=== PATIENT | male | born 1955 | race Caucasian/White ===

== ENCOUNTER 2024-08-07 05:57 | Emergency (ER) | payer MEDICARE ==
[2024-08-07 06:09] VITALS: TEMP 96
--- NOTE | 2024-08-07 06:27 | ERPHSYRPT ---
- History of Present Illness Source: patient Exam Limitations: no limitations Patient Subjective Stated Complaint: rt side pain arianna under ribs, sob, cough Triage Nursing Assessment: Pt ambulated into ER without diff, spouse at bedside, pt alert and oriented x4. Pt c/o rt side pain at the rib area which began about 2 days ago but has worsened since yesterday. O2 sats 95% on rm air upon arrival to ER. Pt c/o it being difficult to take a deep breath, sob and being unable to lay down and a cough. Pt states, "that I only get relief when I stand up". Lungs clear anteriorly, pt was unable to lean forward for me to listen posteriorly. Heart tones reg. Abd obese with hypoactive bs x4 quad, nontender on palpation. Pt has trace non-pitting edema to BLE which pt states is normal for him. Timing/Duration: yesterday Severity: severe Modifying Factors: Improves With: nothing. Worsens With: movement Associated Symptoms: nausea, abdominal pain, diaphoresis, No vomiting, No chest pain, No fever Hx Tetanus, Diphtheria Vaccination/Date Given: No Hx Influenza Vaccination/Date Given: No Hx Pneumococcal Vaccination/Date Given: No <TAWNYA SOFIA - Last Filed: 08/07/24 06:42> <TONEY PAREDES - Last Filed: 08/07/24 09:07> - History of Present Illness Time Seen by Provider: 08/07/24 06:27 Physician History: The patient presents with sharp, intermittent pain on the side of their back, which has been ongoing for a couple of months but significantly worsened the previous day. The pain is severe enough to affect their ability to lie down and is associated with increased difficulty in urination. The patient also reports feeling feverish and experiencing excessive sweating. They deny any recent injuries or blood in their urine. The patient has a history of similar, albeit less severe, episodes in the past, which they associated with their kidneys. (TAWNYA SOFIA) Allergies/Adverse Reactions: Sulfa (Sulfonamide Antibiotics) Adverse Reaction (Intermediate, Verified 08/07/24 06:25) Rash Home Medications: Allopurinol 100 mg [Zyloprim 100 mg] 1 tab PO DAILY 08/07/24 [History] Losartan Potassium 100 mg PO DAILY 08/07/24 [History] Primidone 250 mg PO DAILY 08/07/24 [History] Propranolol HCl 40 mg PO DAILY 08/07/24 [History] Simvastatin 10 mg [Zocor 10MG] 1 tab PO DAILY 08/07/24 [History] Travel Risk - International Travel Have you traveled outside of the country in past 3 weeks: No - Emerging Infectious Disease Are you exhibiting symptoms associated with any current EIDs: Yes Symptoms: Cough: New Onset, Shortness of Breath <TAWNYA SOFIA - Last Filed: 08/07/24 06:42> - Review of Systems All Other Systems: Reviewed and Negative <TAWNYA SOFIA - Last Filed: 08/07/24 06:42> - Past Medical History Pertinent Past Medical History: Yes Neurological History: No Pertinent History ENT History: No Pertinent History Cardiac History: High Cholesterol, Hypertension Respiratory History: No Pertinent History Musculoskeletal History: Fractures, Other GI Medical History: Hernia History: Other Male Reproductive Disorders: No Pertinent History Other Medical History: kidney stone. tremors. gout. bone chip left ankle, fx bilat elbows - Past Surgical History Past Surgical History: No - Social History Smoking Status: Former smoker Exposure to second hand smoke: No Drug Use: none - Social Determinants of Health Will the patient participate in the screening: Yes Do you worry about a steady place to live?: No Do you have any problems with any of the following?: No known problems In the past 12 months,have you had to go without utilities?: No Transportation Issues: No Has anyone in your support network made you feel unsafe?: No Have you or anyone in your house had to go without enough: No <TAWNYA SOFIA - Last Filed: 08/07/24 06:42> - Physical Exam General Appearance: no apparent distress, obese Respiratory Exam: normal breath sounds, airway intact, No respiratory distress Cardiovascular Exam: regular rate/rhythm, No edema Gastrointestinal/Abdomen Exam: soft, tenderness (right flank), No guarding, No rebound Back Exam: CVA tenderness (right), point tenderness (under right rib) Neurologic Exam: alert, oriented x 3, cooperative Skin Exam: normal color, warm, diaphoresis SpO2 Interpretation: normal SpO2: 95 O2 Delivery: Room Air <TAWNYA SOFIA - Last Filed: 08/07/24 06:42> - Nursing Vital Signs Nursing Vital Signs: Initial Vital Signs Temperature 96.0 F 08/07/24 06:06 Pulse Rate 94 H 08/07/24 06:06 Respiratory Rate 30 H 08/07/24 06:06 Blood Pressure 157/81 08/07/24 06:06 O2 Sat by Pulse Oximetry 95 08/07/24 06:06 Pain Scale Pain Intensity [Right] 7 Pain Intensity 7 Ordered Tests: Active Orders 24 hr Category Date Time Status ABDOMEN AND PELVIS W/0 CONTRAS [CT] Stat Exams 08/07/24 06:34 Completed CHEST WITHOUT CONTRAST [CT] Stat Exams 08/07/24 06:36 Completed CBC W DIFF Stat Lab 08/07/24 06:52 Completed CMP Stat Lab 08/07/24 06:52 Completed LIPASE Stat Lab 08/07/24 06:52 Completed Lactic Acid Stat Lab 08/07/24 06:32 Completed Manual Differential NC Stat Lab 08/07/24 06:52 Completed TROPONIN Q4H Lab 08/07/24 06:52 Completed TROPONIN Q4H Lab 08/07/24 10:45 Ordered TROPONIN Q4H Lab 08/07/24 14:45 Ordered UA W/RFX UR CULTURE Stat Lab 08/07/24 06:42 Completed Medication Summary Discontinued Medications Generic Name Dose Route Start Last Admin Trade Name Freq PRN Reason Stop Dose Admin Ketorolac Tromethamine 10 mg 08/07/24 06:37 08/07/24 07:20 Ketorolac Tromethamine 10 Mg Tablet PO 08/07/24 06:38 10 mg ONCE ONE Administration Lab/Rad Data: Laboratory Result Diagrams 08/07/24 06:52 08/07/24 06:52 Laboratory Results 08/07/24 08/07/24 08/07/24 Range/Units 06:52 06:52 06:52 WBC 8.9 (4.23-9.07) x10^3/uL RBC 4.41 L (4.63-6.08) x10^6/uL Hgb 13.4 L (13.7-17.5) g/dL Hct 39.2 L (40.1-51.0) % MCV 88.9 (79.0-92.2) fL MCH 30.4 (25.7-32.2) pg MCHC 34.2 (32.3-36.5) g/dL RDW 14.2 (11.6-14.4) % Plt Count 174 (163-337) x10^3/uL MPV 10.5 (9.4-12.4) fL Segmented Neutrophils 90 H (34.0-67.9) % Lymphocytes (Manual) 4 L (21.8-53.1) % Monocytes (Manual) 6 (5.3-12.2) % Platelet Estimate NORMAL (NORMAL) RBC Morphology NORMAL Sodium 136 (135-145) mmol/L Potassium 3.6 (3.5-5.1) mmol/L Chloride 102 (98-107) mmol/L Carbon Dioxide 24 (22-30) mmol/L Anion Gap 13.8 (5-15) MEQ/L BUN 18 (9-20) mg/dL Creatinine 1.25 (0.66-1.25) mg/dL Estimated GFR 63.1 ML/MIN Glucose 137 H (74-106) mg/dL Lactic Acid (0.4-2.0) Calcium 8.9 (8.4-10.2) mg/dL Total Bilirubin 1.40 H (0.2-1.3) mg/dL AST 19 (17-59) U/L ALT 14 (0-50) U/L Alkaline Phosphatase 69 (38-126) U/L Troponin I < 0.012 (0.000-0.033) ng/mL Serum Total Protein 6.7 (6.3-8.2) g/dL Albumin 3.9 (3.5-5.0) g/dL Lipase 51 (23-300) U/L Urine Color (Yellow) Urine Appearance (Clear) Urine pH (4.6-8.0) Ur Specific Gregory (1.005-1.030) Urine Protein (Negative) Urine Glucose (UA) (Negative) mg/dL Urine Ketones (Negative) Urine Blood (Negative) Urine Nitrite (Negative) Urine Bilirubin (Negative) Urine Urobilinogen (0.2) mg/dL Ur Leukocyte Esterase (Negative) U Hyaline Cast (Auto) (0-2) /LPF Urine Microscopic RBC (0-5) /HPF Urine Microscopic WBC (0-5) /HPF Ur Epithelial Cells (None Seen) /HPF Urine Bacteria (None Seen) /HPF Urine Culture Reflexed (NO) 08/07/24 08/07/24 Range/Units 06:42 06:32 WBC (4.23-9.07) x10^3/uL RBC (4.63-6.08) x10^6/uL Hgb (13.7-17.5) g/dL Hct (40.1-51.0) % MCV (79.0-92.2) fL MCH (25.7-32.2) pg MCHC (32.3-36.5) g/dL RDW (11.6-14.4) % Plt Count (163-337) x10^3/uL MPV (9.4-12.4) fL Segmented Neutrophils (34.0-67.9) % Lymphocytes (Manual) (21.8-53.1) % Monocytes (Manual) (5.3-12.2) % Platelet Estimate (NORMAL) RBC Morphology Sodium (135-145) mmol/L Potassium (3.5-5.1) mmol/L Chloride (98-107) mmol/L Carbon Dioxide (22-30) mmol/L Anion Gap (5-15) MEQ/L BUN (9-20) mg/dL Creatinine (0.66-1.25) mg/dL Estimated GFR ML/MIN Glucose (74-106) mg/dL Lactic Acid 0.7 (0.4-2.0) Calcium (8.4-10.2) mg/dL Total Bilirubin (0.2-1.3) mg/dL AST (17-59) U/L ALT (0-50) U/L Alkaline Phosphatase (38-126) U/L Troponin I (0.000-0.033) ng/mL Serum Total Protein (6.3-8.2) g/dL Albumin (3.5-5.0) g/dL Lipase (23-300) U/L Urine Color Yellow (Yellow) Urine Appearance Clear (Clear) Urine pH 5.5 (4.6-8.0) Ur Specific Gregory 1.025 (1.005-1.030) Urine Protein 30 (Negative) Urine Glucose (UA) Negative (Negative) mg/dL Urine Ketones Trace A (Negative) Urine Blood Negative (Negative) Urine Nitrite Negative (Negative) Urine Bilirubin Negative (Negative) Urine Urobilinogen 1.0 A (0.2) mg/dL Ur Leukocyte Esterase Negative (Negative) U Hyaline Cast (Auto) 3-5 A (0-2) /LPF Urine Microscopic RBC 0-2 (0-5) /HPF Urine Microscopic WBC 0-2 (0-5) /HPF Ur Epithelial Cells None Seen (None Seen) /HPF Urine Bacteria None Seen (None Seen) /HPF Urine Culture Reflexed NO (NO) <TAWNYA SOFIA - Last Filed: 08/07/24 06:42> - Progress Counseled pt/family regarding: lab results, diagnosis, need for follow-up, rad results <TONEY PAREDES - Last Filed: 08/07/24 09:07> - Progress Progress Note: Flank Pain Severe, sharp pain on the side of the back, started yesterday but has been intermittent for a few months. No known injury. Increased difficulty urinating and possible fever. Physical exam reveals bilateral back muscle spasm. Differe ntial includes renal colic, musculoskeletal pain, and rib pathology. -Order CT scan to evaluate for kidney stones. -Include chest in CT scan to evaluate ribs for possible injury. -CBC, CMP, Lipase, Troponin, UA ordered -Ketorolac 10mg PO given. Care transitioned to Dr. Paredes at 0700 with labs/imaging pending. (TAWNYA SOFIA) 08/07/24 09:02 I interpreted the patient's laboratory data results. Based on the laboratory data results, there are no acute, emergent medical issues. The CT scan of the chest without contrast was interpreted by the radiologist. I reviewed the impression. The impressions include soft tissue density nodule right lung base. Follow-up with CT scan of chest with contrast is recommended. Left base subpleural calcified nodule. Multiple calcified nodules at left hilar level and subcarina. Bibasilar right greater than left, groundglass opacities. Right thyroid gland is enlarged with heterogeneous density. Correlate with outpatient ultrasound. No rib fractures. These findings were discussed with the patient. The CT scan of the abdomen pelvis without contrast was interpreted by the radiologist and I reviewed the impression. The impression states multiple gallstones. Tiny splenic calcifications. Bilateral perirenal fat stranding's without signs of acute urinary obstruction. Mild prostatomegaly. Small umbilical hernia with peritoneal fat content. These findings were discussed with the patient (TONEY PAREDES) Medical Desision Making - Diagnostic Testing Diagnostic test were ordered, analyzed, and reviewed by me: Yes Radiological Interpretation: Reviewed by me, Teleradiologist Report <TONEY PAREDES - Last Filed: 08/07/24 09:07> <TAWNYA SOFIA - Last Filed: 08/07/24 06:42> - Departure Departure Disposition: Home Critical Care Time: No <TONEY PAREDES - Last Filed: 08/07/24 09:07> - Departure Clinical Impression: Right-sided chest wall pain, Right flank pain, Lung nodule, multiple, Umbilical hernia, Enlarged thyroid gland Condition: Stable Referrals: BECKY SANCHEZ MD [Primary Care Provider] - Follow up/PCP as directed Additional Instructions: Drink plenty fluids. Take your medications as prescribed. Call your primary care provider on 08/09/2024, to make arrangements for follow-up appointment and to be seen in the next 3 to 5 days. Discuss the lung base nodule and hilar level nodule findings and follow their recommendations. Discussed the enlarged right thyroid gland findings and follow their recommendations.
[2024-08-07 07:10] LABS: Hematocrit 39.2 % (40.1-51.0); Hemoglobin 13.4 g/dL (13.7-17.5); Mean Cell Volume 88.9 fL (79.0-92.2); Mean Corpuscular Hemoglobin 30.4 pg (25.7-32.2); Mean Corpuscular Hgb Concent. 34.2 g/dL (32.3-36.5); Mean Platelet Volume 10.5 fL (9.4-12.4); Platelet Count 174 x10^3/uL (163-337); Red Blood Count 4.41 x10^6/uL (4.63-6.08); Red Cell Distribution Width 14.2 % (11.6-14.4); White Blood Count 8.9 x10^3/uL (4.23-9.07)
[2024-08-07] MEDS: TORAdol 10 MG TABLET PO ONE (07:20)
[2024-08-07 07:21] LABS: Appearance Clear (Clear); Bacteria None Seen /HPF (None Seen); Bilirubin Negative (Negative); Blood Negative (Negative); Epithelial Cells None Seen /HPF (None Seen); Glucose, Urine Negative (Negative); Ketones Trace (Negative); Leukocyte Esterase Negative (Negative); Nitrite Negative (Negative); Ph 5.5 (4.6-8.0); Protein,Urine Dip 30 (Negative); RBC 0-2 /HPF (0-5); Specific Gravity 1.025 (1.005-1.030); WBC 0-2 /HPF (0-5)
[2024-08-07 07:24] LABS: ALBUMIN 3.9 g/dL (3.5-5.0); ANION GAP 13.8 MEQ/L (5-15); BILIRUBIN,TOTAL 1.4 mg/dL (0.2-1.3); Calcium 8.9 mg/dL (8.4-10.2); Creatinine 1 1.25 mg/dL (0.66-1.25); EST GLOMERULAR FILTRATION RATE 63.1 ML/MIN; Potassium 3.6 mmol/L (3.5-5.1); Total Protein 6.7 g/dL (6.3-8.2)
[2024-08-07 07:42] LABS: Lymphocytes 4 % (21.8-53.1); Monocyte 6 % (5.3-12.2); Neutrophils 90 % (34.0-67.9); Total Cells Counted 100
[2024-08-07 07:44] LABS: Platelet Estimate NORMAL (NORMAL)
--- NOTE | 2024-08-07 08:55 | XRAY ---
CLINICAL HISTORY: ribs COMPARISON: None. TECHNIQUE: Contiguous axial CT images of the chest were acquired without administration of intravenous contrast. Coronal and sagittal reconstructions were obtained. One of the following dose reduction techniques were utilized for this exam: Automated exposure control, adjustment of the mA and/or kV according to patient size, use of iterative reconstruction. FINDINGS: Lungs: About [id number] diffusely calcified nodule is seen in the subpleural location with an adjacent 5mm calcified nodule medially in the left base. About 11x8mm soft tissue density nodule is also seen in the base, correlation with enhanced CT is advised. Bibasal reticulation is seen bilaterally, more at the right side with gound glass opacities. Mild atelectatic changes are seen in both lower lobes. Mild pleural thickening is seen in the posterior aspects of the lower zones, likely age-related. A small subpleural air-bulla is seen at the right lower lung zone anteriorly & another tiny bulla is also seen in the right upper lobe. Mediastinum: The mediastinum is normal in size and contour. Multiple calcified nodules are seen, at the left hilar level & at the sub sav[place] in addition to a few reactive-looking non-calcified nodules in the rest of the mediastinum. The heart size is within normal limits. The right thyroid is enlarged with heterogenous density, to correlate with US. Hilar Structures: The hilar structures appear normal without enlargement or abnormality. Trachea and Main Bronchi: The trachea and main bronchi are patent without evidence of obstruction or abnormality. Chest Wall: The chest wall is unremarkable with no evidence of soft tissue or bony abnormalities. Bones: No evidence of fracture or lytic/sclerotic lesions in the ribs. Hypertrophic changes are seen within the spine. A bony island is seen in the right humeral head. IMPRESSION: 1. About 11x8mm soft tissue density nodule is also seen in the right lung base, Lung-RADS 3 = Probably benign. Recommendation: 6-month low-dose chest CT screening 2. About [id number] diffusely calcified nodule is seen in the subpleural location with an adjacent 5mm calcified nodule medially in the left base. 3. Multiple calcified nodules are seen, at the left hilar level & at the sub savannah. correlation with the patient's history is advised. 4. Bibasal reticulation is seen bilaterally, more at the right side with ground glass opacities. 5. The right thyroid is enlarged with heterogenous density, to correlate with US. 6. No ribs fracture was identified. Electronically Signed by: Ingrid Hall MD. (08/07/2024 08:51:08 EDT)
--- NOTE | 2024-08-07 08:57 | XRAY ---
CLINICAL HISTORY: abd pain COMPARISON: No prior studies are available for comparison. TECHNIQUE: Non-contrast CT of the abdomen and pelvis was performed, with the following protocol: axial images, and reconstructed coronal and sagittal images. One of the following dose reduction techniques was utilized for this exam: Automated exposure control, adjustment of the mA and/or kV according to patient size, and use of iterative reconstruction. FINDINGS: Abdomen: Liver: Normal in size, shape, and density. No focal lesions, cysts, or masses were identified. Gallbladder and Biliary System: The gallbladder is well-distended with multiple variant-sized gallstones. No wall thickening or pericholecystic fluid were identified. Pancreas: Pancreatic head, body, and tail are visualized and appear normal in size and density. No pancreatic masses or calcifications were noted. Spleen: Normal in size, shape, and density. Numerous tiny calcifications are seen throughout the splenic parenchyma, which could be related to a previous granulomatous disease. Correlation with the patient history is advised. Kidneys and Adrenal Glands: Both kidneys are normal in size, shape, and position. Cortical thickness is within normal limits. No mustapha renal calculi or hydronephrosis. Mild bilateral mika renal fat stranding is noted. Adrenal glands are unremarkable. Abdominal Aorta and Vessels: The abdominal aorta reveals mild atherosclerotic changes without evidence of an aneurysm. Pelvis: Urinary Bladder: is under-distended. No stones were identified. Prostate: is slightly enlarged in size up to 41ml with clear contour. Seminal Vesicles: Normal appearance without abnormal enlargement or mass. Peritoneal and Retroperitoneal Structures: No free fluid or abnormal fluid collections were identified within the abdomen or pelvis. No lymphadenopathy was noted. Bowel: No signs of appendicitis. The visualized bowel loops are normal in caliber and appearance. No evidence of bowel obstruction or wall thickening. A small umbilical hernia with peritoneal fat content. Bones and Soft Tissues: Pelvic bones and soft tissues are unremarkable but hypertrophic changes in the spine. IMPRESSION: 1. Multiple gallstones are seen with no signs of acute cholecystitis. 2. Numerous tiny calcifications are seen throughout the splenic parenchyma, which could be related to a previous granulomatous disease. Correlation with the patient history is advised. 3. Mild bilateral mika renal fat stranding is noted with no signs of acute urinary obstruction. 4. Mild prostatomegaly is noted up to 41ml, for US correlation. 5. A small umbilical hernia with peritoneal fat content. Electronically Signed by: Ingrid Hall MD. (08/07/2024 08:52:30 EDT)
[2024-08-07 09:05] VITALS: BP 129/73; PULSE 68; RESP 18; O2SAT 95
== END 2024-08-07 09:21 | disposition home or self-care (01) ==
LOC: ED 05:57
DX: R07.89 Other chest pain (principal); R10.9 Unspecified abdominal pain; R91.8 Other nonspecific abnormal finding of lung field; K42.9 Umbilical hernia without obstruction or gangrene; E04.9 Nontoxic goiter, unspecified; M54.9 Dorsalgia, unspecified; R39.198 Other difficulties with micturition; E78.5 Hyperlipidemia, unspecified; I10 Essential (primary) hypertension; Z79.899 Other long term (current) drug therapy
CPT/HCPCS: 36415; 71250; 74176; 80053; 81001; 83605; 83690; 84484; 85025; 99283; A9270-GY

== ENCOUNTER 2024-08-18 21:50 | Emergency (ER) | payer MEDICARE ==
--- NOTE | 2024-08-18 22:02 | ERPHSYRPT ---
- History of Present Illness Time Seen by Provider: 08/18/24 22:01 Source: patient Exam Limitations: no limitations Physician History: Patient is a 68-year-old male presents to our ED with his for evaluation of progressive shortness of breath over the past couple weeks. at bedside. They deny any cardiopulmonary history. Patient was a former smoker. Patient is not retired. Patient reports chronic leg swelling. He has no pain at this time. Shortness of breath is worse with exertion. reports that patient unable to ambulate to his bathroom. Patient symptoms are progressive. Symptoms are moderate in intensity. Patient/ voiced no other complaints or concerns at this time. Patient observed to have a fever 102.2 Portions of this note were created with voice recognition technology. There may be grammatical, spelling, punctuation or sound alike errors Timing/Duration: week(s) Activities at Onset: activity Severity of Dyspnea-Max: moderate Severity of Dyspnea-Current: mild Possible Cause: no prior episodes Modifying Factors: Improves With: activity Associated Symptoms: denies symptoms Allergies/Adverse Reactions: Sulfa (Sulfonamide Antibiotics) Adverse Reaction (Intermediate, Verified 08/18/24 21:53) Rash Home Medications: Allopurinol 100 mg [Zyloprim 100 mg] 1 tab PO DAILY 08/07/24 [History] Losartan Potassium 100 mg PO DAILY 08/07/24 [History] Primidone 250 mg PO DAILY 08/07/24 [History] Propranolol HCl 40 mg PO DAILY 08/07/24 [History] Simvastatin 10 mg [Zocor 10MG] 1 tab PO DAILY 08/07/24 [History] Albuterol Sulfate Mdi [ALBUTEROL/Proair Hfa MDI] 2 puff IH Q4HPRN PRN [History] Hx Tetanus, Diphtheria Vaccination/Date Given: No Hx Influenza Vaccination/Date Given: No Hx Pneumococcal Vaccination/Date Given: No Travel Risk - Emerging Infectious Disease Are you exhibiting symptoms associated with any current EIDs: Yes Symptoms: Cough: New Onset, Shortness of Breath - Review of Systems Constitutional: No Symptoms, No Fever, No Chills Eyes: No Symptoms Ears, Nose, & Throat: No Symptoms Respiratory: No Symptoms, No Cough, No Dyspnea Cardiac: No Symptoms, No Chest Pain, No Edema, No Syncope Abdominal/Gastrointestinal: No Symptoms, No Abdominal Pain, No Nausea, No Vomiting, No Diarrhea Genitourinary Symptoms: No Symptoms, No Dysuria Musculoskeletal: No Symptoms, No Back Pain, No Neck Pain Skin: No Symptoms, No Rash Neurological: No Symptoms, No Dizziness, No Focal Weakness, No Sensory Changes Psychological: No Symptoms Endocrine: No Symptoms Hematologic/Lymphatic: No Symptoms Immunological/Allergic: No Symptoms All Other Systems: Reviewed and Negative - Past Medical History Pertinent Past Medical History: Yes Neurological History: No Pertinent History ENT History: No Pertinent History Cardiac History: High Cholesterol, Hypertension Respiratory History: No Pertinent History Musculoskeletal History: Fractures, Other GI Medical History: Hernia History: Other Male Reproductive Disorders: No Pertinent History Other Medical History: kidney stone. tremors. gout. bone chip left ankle, fx bilat elbows - Past Surgical History Past Surgical History: No - Social History Smoking Status: Former smoker Exposure to second hand smoke: No Drug Use: none - Social Determinants of Health Will the patient participate in the screening: Yes Do you worry about a steady place to live?: No In the past 12 months,have you had to go without utilities?: No Transportation Issues: No Has anyone in your support network made you feel unsafe?: No Have you or anyone in your house had to go without enough: No - Nursing Vital Signs Nursing Vital Signs: Initial Vital Signs Temperature 102.2 F 08/18/24 21:57 Pulse Rate 100 H 08/18/24 21:57 Respiratory Rate 32 H 08/18/24 21:57 Blood Pressure 175/91 08/18/24 21:57 O2 Sat by Pulse Oximetry 94 L 08/18/24 21:57 Pain Scale Pain Intensity 0 - Physical Exam General Appearance: no apparent distress, alert Eye Exam: PERRL/EOMI, eyes nml inspection Ears, Nose, Throat Exam: normal ENT inspection, normal pharynx Neck Exam: normal inspection, supple, full range of motion Respiratory Exam: diminished breath sounds Cardiovascular/Chest Exam: normal heart sounds, regular rate/rhythm Abdominal/Gastrointestinal Exam: soft, No tenderness, No distention, No mass Extremity Exam: non-tender, normal range of motion, normal inspection, no calf tenderness, no pedal edema Neurologic Exam: alert, oriented x 3, cooperative, 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 Right heart strain lung cyst right pleural effusion lung granulomas right middle lobe 1 cm lung nodule cholelithiasis and bulky right thyroid lobe) Ordered Tests: Active Orders 24 hr Category Date Time Status [employer] STAT Care 08/18/24 21:57 Active EKG-ER Only STAT Care 08/18/24 21:57 Active IV Insertion STAT Care 08/18/24 21:57 Active Pulse Oximetry (ED) STAT Care 08/18/24 21:57 Active CHEST WITH CONTRAST [CT] Stat Exams 08/18/24 23:09 Completed BLOOD CULTURE Stat Lab 08/18/24 22:15 Received CBC Q48H Lab 08/20/24 06:00 Ordered CBC Q48H Lab 08/22/24 06:00 Ordered CBC Q48H Lab 08/24/24 06:00 Ordered CBC Q48H Lab 08/26/24 06:00 Ordered CBC Q48H Lab 08/28/24 06:00 Ordered CBC Q48H Lab 08/30/24 06:00 Ordered CBC Q48H Lab 09/01/24 06:00 Ordered CBC W DIFF Stat Lab 08/18/24 22:10 Completed CMP Stat Lab 08/18/24 22:10 Completed D-DIMER QUANTITATIVE Stat Lab 08/18/24 22:10 Completed NT PRO BNPII Stat Lab 08/18/24 22:15 Completed PROTIME WITH INR Stat Lab 08/19/24 00:00 Completed PTT Q4H Lab 08/19/24 06:30 Completed PTT Q4H Lab 08/19/24 10:30 Ordered PTT Q4H Lab 08/19/24 14:30 Ordered PTT Q4H Lab 08/19/24 18:30 Ordered PTT Q4H Lab 08/19/24 22:30 Ordered PTT Q4H Lab 08/20/24 02:30 Ordered PTT Q4H Lab 08/20/24 03:15 Ordered PTT Q4H Lab 08/20/24 03:45 Ordered PTT Q4H Lab 08/20/24 06:30 Ordered PTT Q4H Lab 08/20/24 07:15 Ordered PTT Q4H Lab 08/20/24 07:45 Ordered PTT Q4H Lab 08/20/24 10:30 Ordered PTT Q4H Lab 08/20/24 11:15 Ordered PTT Q4H Lab 08/20/24 11:45 Ordered PTT Q4H Lab 08/20/24 14:30 Ordered PTT Q4H Lab 08/20/24 15:15 Ordered PTT Q4H Lab 08/20/24 15:45 Ordered PTT Q4H Lab 08/20/24 18:30 Ordered PTT Q4H Lab 08/20/24 19:15 Ordered PTT Q4H Lab 08/20/24 19:45 Ordered PTT Q4H Lab 08/20/24 22:30 Ordered PTT Q4H Lab 08/20/24 23:15 Ordered PTT Q4H Lab 08/20/24 23:45 Ordered PTT Stat Lab 08/19/24 00:00 Completed TROPONIN AM.LAB Lab 08/19/24 04:17 Completed TROPONIN Stat Lab 08/19/24 00:00 Completed UA W/RFX UR CULTURE Stat Lab 08/18/24 22:49 Completed Respiratory Therapy Assessment DAILY RT 08/18/24 22:21 Active Medication Summary Generic Name Dose Route Start Last Admin Trade Name Freq PRN Reason Stop Dose Admin Heparin Sodium/Dextrose 25,000 units in 250 mls @ 0 mls/hr 08/19/24 03:30 Heparin 25,000 Units/D5w: Use Order Set Anna IV 09/18/24 03:29 PROSPER Protocol 12 UNITS/KG/HR Heparin Sodium/Dextrose 25,000 units in 250 mls @ 16.632 mls/hr 08/19/24 04:00 08/19/24 03:30 Heparin 25,000 Units/D5w: Use Order Set Anna IV 09/18/24 03:59 10 units/kg/hr .Q15H2M PROSPER 13.86 mls/hr Administration Protocol 12 UNITS/KG/HR Discontinued Medications Generic Name Dose Route Start Last Admin Trade Name Freq PRN Reason Stop Dose Admin Acetaminophen 975 mg 08/18/24 22:13 08/18/24 22:22 Acetaminophen 325 Mg Tablet PO 08/18/24 22:14 975 mg STAT ONE Administration Acetaminophen Confirm 08/18/24 22:16 Acetaminophen 325 Mg Tablet Administered 08/18/24 22:17 Dose 975 mg .ROUTE .STK-MED ONE Albuterol/Ipratropium 3 ml 08/18/24 21:57 08/18/24 22:21 Ipratropium/Albuterol Sulfate 3 Ml Ampul.Neb IH 08/18/24 21:58 3 ml STAT ONE Administration Albuterol/Ipratropium Confirm 08/18/24 22:06 Ipratropium/Albuterol Sulfate 3 Ml Ampul.Neb Administered 08/18/24 22:07 Dose 3 ml IH .STK-MED ONE Methylprednisolone Sodium 0 mg 08/18/24 21:57 08/18/24 22:23 Succinate 125 mg/ Sterile IV 08/18/24 21:58 125 mg Water 2 ml STAT ONE Administration Heparin Sodium (Beef Lung) 5,000 unit 08/19/24 02:20 08/19/24 02:42 Heparin 5000 Units/0.5 Ml 5,000 Unit/0.5 Ml Syr IV 08/19/24 02:21 5,000 unit STAT STA Administration Heparin Sodium (Beef Lung) Confirm 08/19/24 02:39 Heparin 5000 Units/0.5 Ml 5,000 Unit/0.5 Ml Syr Administered 08/19/24 02:40 Dose 5,000 unit .ROUTE .STK-MED ONE Methylprednisolone Sodium Succinate Confirm 08/18/24 22:16 Methylprednis Sod Succ 125 Mg/2 Ml Vial Administered 08/18/24 22:17 Dose 125 mg .ROUTE .STK-MED ONE Sterile Water Confirm 08/18/24 22:16 Water For Injection,Sterile 10 Ml Vial Administered 08/18/24 22:17 Dose 10 ml IJ .STK-MED ONE Lab/Rad Data: Laboratory Result Diagrams 08/18/24 22:10 08/18/24 22:10 Laboratory Results 08/19/24 08/19/24 08/19/24 Range/Units 06:30 04:17 00:00 WBC (4.23-9.07) x10^3/uL RBC (4.63-6.08) x10^6/uL Hgb (13.7-17.5) g/dL Hct (40.1-51.0) % MCV (79.0-92.2) fL MCH (25.7-32.2) pg MCHC (32.3-36.5) g/dL RDW (11.6-14.4) % Plt Count (163-337) x10^3/uL MPV (9.4-12.4) fL Gran % (34.0-67.9) % Immature Gran % (Auto) (0.001-0.429) % Nucleat RBC Rel Count (0.00-0.2) % Eos # (Auto) (0.04-0.54) x10^3/uL Immature Gran # (Auto) (0.001-0.031) x10^3u/L Absolute Lymphs (auto) (1.32-3.57) x10^3/uL Absolute Monos (auto) (0.30-0.82) x10^3/uL Absolute Nucleated RBC (0.00-0.012) x10^3u/L Lymphocytes % (21.8-53.1) % Monocytes % (5.3-12.2) % Eosinophils % (0.8-7.0) % Basophils % (0.2-1.2) % Absolute Granulocytes (1.78-5.38) x10^3/uL Basophils # (0.01-0.08) x10^3/uL PT (9.4-12.5) SECONDS INR (0.8-3.0) APTT 43.4 H (25.1-36.5) SECONDS D-Dimer (0.0-0.50) mg/L Sodium (135-145) mmol/L Potassium (3.5-5.1) mmol/L Chloride (98-107) mmol/L Carbon Dioxide (22-30) mmol/L Anion Gap (5-15) MEQ/L BUN (9-20) mg/dL Creatinine (0.66-1.25) mg/dL Estimated GFR ML/MIN Glucose (74-106) mg/dL Calcium (8.4-10.2) mg/dL Total Bilirubin (0.2-1.3) mg/dL AST (17-59) U/L ALT (0-50) U/L Alkaline Phosphatase (38-126) U/L Troponin I < 0.012 < 0.012 (0.000-0.033) ng/mL NT-Pro-B Natriuret Pep (<300) pg/mL Serum Total Protein (6.3-8.2) g/dL Albumin (3.5-5.0) g/dL Urine Color (Yellow) Urine Appearance (Clear) Urine pH (4.6-8.0) Ur Specific [place] (1.005-1.030) Urine Protein (Negative) Urine Glucose (UA) (Negative) mg/dL Urine Ketones (Negative) Urine Blood (Negative) Urine Nitrite (Negative) Urine Bilirubin (Negative) Urine Urobilinogen (0.2) mg/dL Ur Leukocyte Esterase (Negative) U Hyaline Cast (Auto) (0-2) /LPF Urine Microscopic RBC (0-5) /HPF Urine Microscopic WBC (0-5) /HPF Ur Epithelial Cells (None Seen) /HPF Urine Bacteria (None Seen) /HPF Urine Culture Reflexed (NO) Influenza Type A Ag (NEGATIVE) Influenza Type B Ag (NEGATIVE) RSV (PCR) (NEGATIVE) SARS-CoV-2 (PCR) (NEGATIVE) 08/19/24 08/18/24 08/18/24 Range/Units 00:00 22:49 22:16 WBC (4.23-9.07) x10^3/uL RBC (4.63-6.08) x10^6/uL Hgb (13.7-17.5) g/dL Hct (40.1-51.0) % MCV (79.0-92.2) fL MCH (25.7-32.2) pg MCHC (32.3-36.5) g/dL RDW (11.6-14.4) % Plt Count (163-337) x10^3/uL MPV (9.4-12.4) fL Gran % (34.0-67.9) % Immature Gran % (Auto) (0.001-0.429) % Nucleat RBC Rel Count (0.00-0.2) % Eos # (Auto) (0.04-0.54) x10^3/uL Immature Gran # (Auto) (0.001-0.031) x10^3u/L Absolute Lymphs (auto) (1.32-3.57) x10^3/uL Absolute Monos (auto) (0.30-0.82) x10^3/uL Absolute Nucleated RBC (0.00-0.012) x10^3u/L Lymphocytes % (21.8-53.1) % Monocytes % (5.3-12.2) % Eosinophils % (0.8-7.0) % Basophils % (0.2-1.2) % Absolute Granulocytes (1.78-5.38) x10^3/uL Basophils # (0.01-0.08) x10^3/uL PT 11.5 (9.4-12.5) SECONDS INR 1.06 (0.8-3.0) APTT 29.0 (25.1-36.5) SECONDS D-Dimer (0.0-0.50) mg/L Sodium (135-145) mmol/L Potassium (3.5-5.1) mmol/L Chloride (98-107) mmol/L Carbon Dioxide (22-30) mmol/L Anion Gap (5-15) MEQ/L BUN (9-20) mg/dL Creatinine (0.66-1.25) mg/dL Estimated GFR ML/MIN Glucose (74-106) mg/dL Calcium (8.4-10.2) mg/dL Total Bilirubin (0.2-1.3) mg/dL AST (17-59) U/L ALT (0-50) U/L Alkaline Phosphatase (38-126) U/L Troponin I (0.000-0.033) ng/mL NT-Pro-B Natriuret Pep (<300) pg/mL Serum Total Protein (6.3-8.2) g/dL Albumin (3.5-5.0) g/dL Urine Color Yellow (Yellow) Urine Appearance Clear (Clear) Urine pH 5.5 (4.6-8.0) Ur Specific [place] 1.025 (1.005-1.030) Urine Protein Trace A (Negative) Urine Glucose (UA) Negative (Negative) mg/dL Urine Ketones Trace A (Negative) Urine Blood Negative (Negative) Urine Nitrite Negative (Negative) Urine Bilirubin Negative (Negative) Urine Urobilinogen 1.0 A (0.2) mg/dL Ur Leukocyte Esterase Negative (Negative) U Hyaline Cast (Auto) NONE SEEN (0-2) /LPF Urine Microscopic RBC 0-2 (0-5) /HPF Urine Microscopic WBC 0-2 (0-5) /HPF Ur Epithelial Cells None Seen (None Seen) /HPF Urine Bacteria None Seen (None Seen) /HPF Urine Culture Reflexed NO (NO) Influenza Type A Ag NEGATIVE (NEGATIVE) Influenza Type B Ag NEGATIVE (NEGATIVE) RSV (PCR) NEGATIVE (NEGATIVE) SARS-CoV-2 (PCR) POSITIVE A (NEGATIVE) 08/18/24 08/18/24 08/18/24 Range/Units 22:15 22:10 22:10 WBC (4.23-9.07) x10^3/uL RBC (4.63-6.08) x10^6/uL Hgb (13.7-17.5) g/dL Hct (40.1-51.0) % MCV (79.0-92.2) fL MCH (25.7-32.2) pg MCHC (32.3-36.5) g/dL RDW (11.6-14.4) % Plt Count (163-337) x10^3/uL MPV (9.4-12.4) fL Gran % (34.0-67.9) % Immature Gran % (Auto) (0.001-0.429) % Nucleat RBC Rel Count (0.00-0.2) % Eos # (Auto) (0.04-0.54) x10^3/uL Immature Gran # (Auto) (0.001-0.031) x10^3u/L Absolute Lymphs (auto) (1.32-3.57) x10^3/uL Absolute Monos (auto) (0.30-0.82) x10^3/uL Absolute Nucleated RBC (0.00-0.012) x10^3u/L Lymphocytes % (21.8-53.1) % Monocytes % (5.3-12.2) % Eosinophils % (0.8-7.0) % Basophils % (0.2-1.2) % Absolute Granulocytes (1.78-5.38) x10^3/uL Basophils # (0.01-0.08) x10^3/uL PT (9.4-12.5) SECONDS INR (0.8-3.0) APTT (25.1-36.5) SECONDS D-Dimer 9.58 H* (0.0-0.50) mg/L Sodium 137 (135-145) mmol/L Potassium 4.0 (3.5-5.1) mmol/L Chloride 105 (98-107) mmol/L Carbon Dioxide 22 (22-30) mmol/L Anion Gap 14.2 (5-15) MEQ/L BUN 20 (9-20) mg/dL Creatinine 1.36 H (0.66-1.25) mg/dL Estimated GFR 57.0 ML/MIN Glucose 109 H (74-106) mg/dL Calcium 8.8 (8.4-10.2) mg/dL Total Bilirubin 0.50 (0.2-1.3) mg/dL AST 24 (17-59) U/L ALT 20 (0-50) U/L Alkaline Phosphatase 66 (38-126) U/L Troponin I (0.000-0.033) ng/mL NT-Pro-B Natriuret Pep 920 (<300) pg/mL Serum Total Protein 6.5 (6.3-8.2) g/dL Albumin 3.7 (3.5-5.0) g/dL Urine Color (Yellow) Urine Appearance (Clear) Urine pH (4.6-8.0) Ur Specific [place] (1.005-1.030) Urine Protein (Negative) Urine Glucose (UA) (Negative) mg/dL Urine Ketones (Negative) Urine Blood (Negative) Urine Nitrite (Negative) Urine Bilirubin (Negative) Urine Urobilinogen (0.2) mg/dL Ur Leukocyte Esterase (Negative) U Hyaline Cast (Auto) (0-2) /LPF Urine Microscopic RBC (0-5) /HPF Urine Microscopic WBC (0-5) /HPF Ur Epithelial Cells (None Seen) /HPF Urine Bacteria (None Seen) /HPF Urine Culture Reflexed (NO) Influenza Type A Ag (NEGATIVE) Influenza Type B Ag (NEGATIVE) RSV (PCR) (NEGATIVE) SARS-CoV-2 (PCR) (NEGATIVE) 08/18/24 Range/Units 22:10 WBC 5.5 (4.23-9.07) x10^3/uL RBC 4.22 L (4.63-6.08) x10^6/uL Hgb 12.6 L (13.7-17.5) g/dL Hct 37.6 L (40.1-51.0) % MCV 89.1 (79.0-92.2) fL MCH 29.9 (25.7-32.2) pg MCHC 33.5 (32.3-36.5) g/dL RDW 14.3 (11.6-14.4) % Plt Count 204 (163-337) x10^3/uL MPV 10.5 (9.4-12.4) fL Gran % 80.7 H (34.0-67.9) % Immature Gran % (Auto) 0.2 (0.001-0.429) % Nucleat RBC Rel Count 0.0 (0.00-0.2) % Eos # (Auto) 0.22 (0.04-0.54) x10^3/uL Immature Gran # (Auto) 0.01 (0.001-0.031) x10^3u/L Absolute Lymphs (auto) 0.37 L (1.32-3.57) x10^3/uL Absolute Monos (auto) 0.43 (0.30-0.82) x10^3/uL Absolute Nucleated RBC 0.00 (0.00-0.012) x10^3u/L Lymphocytes % 6.8 L (21.8-53.1) % Monocytes % 7.9 (5.3-12.2) % Eosinophils % 4.0 (0.8-7.0) % Basophils % 0.4 (0.2-1.2) % Absolute Granulocytes 4.41 (1.78-5.38) x10^3/uL Basophils # 0.02 (0.01-0.08) x10^3/uL PT (9.4-12.5) SECONDS INR (0.8-3.0) APTT (25.1-36.5) SECONDS D-Dimer (0.0-0.50) mg/L Sodium (135-145) mmol/L Potassium (3.5-5.1) mmol/L Chloride (98-107) mmol/L Carbon Dioxide (22-30) mmol/L Anion Gap (5-15) MEQ/L BUN (9-20) mg/dL Creatinine (0.66-1.25) mg/dL Estimated GFR ML/MIN Glucose (74-106) mg/dL Calcium (8.4-10.2) mg/dL Total Bilirubin (0.2-1.3) mg/dL AST (17-59) U/L ALT (0-50) U/L Alkaline Phosphatase (38-126) U/L Troponin I (0.000-0.033) ng/mL NT-Pro-B Natriuret Pep (<300) pg/mL Serum Total Protein (6.3-8.2) g/dL Albumin (3.5-5.0) g/dL Urine Color (Yellow) Urine Appearance (Clear) Urine pH (4.6-8.0) Ur Specific [place] (1.005-1.030) Urine Protein (Negative) Urine Glucose (UA) (Negative) mg/dL Urine Ketones (Negative) Urine Blood (Negative) Urine Nitrite (Negative) Urine Bilirubin (Negative) Urine Urobilinogen (0.2) mg/dL Ur Leukocyte Esterase (Negative) U Hyaline Cast (Auto) (0-2) /LPF Urine Microscopic RBC (0-5) /HPF Urine Microscopic WBC (0-5) /HPF Ur Epithelial Cells (None Seen) /HPF Urine Bacteria (None Seen) /HPF Urine Culture Reflexed (NO) Influenza Type A Ag (NEGATIVE) Influenza Type B Ag (NEGATIVE) RSV (PCR) (NEGATIVE) SARS-CoV-2 (PCR) (NEGATIVE) - Progress Progress: improved Air Movement: good Progress Note: 69-year-old male presents to our ED for evaluation of progressive shortness of breath over a week. CT scan reveals PE with right heart strain right pleural effusion and a bulky right thyroid lobe that will require follow-up. and patient were informed of the findings including the need for outpatient ultrasound to further evaluate the lobe of the right thyroid. 08/19/24 02:[address] James vascular surgeon at [facility] at 3:53 AM. He will except the consultation. We are currently awaiting call from hospitalist for formal acceptance. 08/19/24 03:[address] Crowder hospitalist at [facility] at 3:57 AM. He excepted admission to ICU. Bed assignment pending. I spoke to Dr. Bansal interventional radiologist at [facility] who reviewed the CAT scan. Spoke to Dr. Bansal at 4:06 AM. He feels that the clot burden is of small volume and would not require interventional radiology services. He feels the management would be medicinal. 08/19/24 04:[address] Mike Davdi hospitalist at [facility] who accepts transfer ER to ER at 4:36 AM. 08/19/24 04:24 Spoke to hospitalist at [facility] who accepts transfer at 4:29 AM. 08/19/24 04:29 Family has decided on transferring to [facility]. We have arranged ground transport. However ground transport will not be available till 10:30 AM. Family updated. Patient febrile upon arrival at 102.2. Tylenol administered. Fever defervesced. Patient currently on a heparin drip per protocol. PTT will be rechecked at 7:30 AM. It is currently the change of shift. Patient endorsed to incoming physician who will oversee the transfer process. Patient reassessed. He is resting comfortably. O2 sat is 96% on 2 L. Blood pressure 135/79. No indication for further workup at this time. Will continue management until reassessment of PTT at 7:30 AM. 69-year-old male presents to our ED for evaluation of shortness of breath. Physical exam revealed hypoxia diminished breath sounds. D-dimer elevated at 9.58. CTA chest reveals filling defect at the right main and bilateral lobar and segmental branches. Troponin negative x 2. Weight-based heparin drip initiated. Vital stable. Transport pending. Complexity of problem addressed is moderate acute complicated. Critical care time is greater than 194 minutes. Immediate management indicated to prevent further deterioration. Complexity data reviewed and analyzed is extensive. Test ordered chest reviewed results analyzed and correlated clinically with history and physical exam. Management discussed with specialist as indicated above. Risk of complication and or risk of morbidity/mortality of patient management is high. Vital stable. Time spent to transfer patient is approximately 30 minutes. Plan of care established for shared decision making. No social determinants of health present to impede follow-up. 08/19/24 06:52 08/19/24 06:55 Blood Culture(s) Obtained: Yes Antibiotics given: Yes Counseled pt/family regarding: lab results, diagnosis, rad results - Departure Departure Disposition: Observation Clinical Impression: SOB (shortness of breath), COVID-19, Fever, CRI (chronic renal insufficiency), Pulmonary embolus, Right heart strain, Lung granuloma, Lung nodule, Pleural effusion on right, Lung cyst, Bulky right thyroid lobe, Cholelithiasis Condition: Stable Critical Care Time: Yes Critical Care Time(excluding separately billable procedures): Critical > 194 mins Referrals: BECKY SANCHEZ MD [Primary Care Provider] - Follow up/PCP as directed
[2024-08-18] MEDS ORDERED: DUONEB 0.5-3 MG/3 ml Neb IH ONE (22:06)
[2024-08-18 22:11] VITALS: TEMP 102.2
[2024-08-18] MEDS ORDERED: TYLENOL 325 MG ONE (22:16)
[2024-08-18] MEDS ORDERED: Sterile H2O 10 ml IJ ONE (22:16)
[2024-08-18] MEDS ORDERED: solu-MEDROL ONE (22:16)
[2024-08-18] MEDS: DUONEB 0.5-3 MG/3 ml Neb IH ONE (22:21)
[2024-08-18] MEDS: TYLENOL 325 MG PO ONE (22:22)
[2024-08-18] MEDS: solu-MEDROL 125 MG, Sterile H2O 10 ml 2 ML IV ONE (22:23)
[2024-08-18 22:27] LABS: Absolute Neutrophil Ct (ANC) 4.41 x10^3/uL (1.78-5.38); BASOPHIL % 0.4 % (0.2-1.2); Basophil (Absolute #) 0.02 x10^3/uL (0.01-0.08); Eosinophil (Absolute #) 0.22 x10^3/uL (0.04-0.54); Hematocrit 37.6 % (40.1-51.0); Hemoglobin 12.6 g/dL (13.7-17.5); IMMATURE GRAN # 0.01 x10^3u/L (0.001-0.031); IMMATURE GRAN % 0.2 % (0.001-0.429); Lymphocyte (Absolute #) 0.37 x10^3/uL (1.32-3.57); Lymphocytes % 6.8 % (21.8-53.1); Mean Cell Volume 89.1 fL (79.0-92.2); Mean Corpuscular Hemoglobin 29.9 pg (25.7-32.2); Mean Corpuscular Hgb Concent. 33.5 g/dL (32.3-36.5); Mean Platelet Volume 10.5 fL (9.4-12.4); Monocyte (Absolute #) 0.43 x10^3/uL (0.30-0.82); Monocytes % 7.9 % (5.3-12.2); Neutrophil % 80.7 % (34.0-67.9); Platelet Count 204 x10^3/uL (163-337); Red Blood Count 4.22 x10^6/uL (4.63-6.08); Red Cell Distribution Width 14.3 % (11.6-14.4); White Blood Count 5.5 x10^3/uL (4.23-9.07)
[2024-08-18 22:41] LABS: ALBUMIN 3.7 g/dL (3.5-5.0); ANION GAP 14.2 MEQ/L (5-15); BILIRUBIN,TOTAL 0.5 mg/dL (0.2-1.3); Calcium 8.8 mg/dL (8.4-10.2); Creatinine 1 1.36 mg/dL (0.66-1.25); Total Protein 6.5 g/dL (6.3-8.2)
[2024-08-18 23:02] LABS: Appearance Clear (Clear); Bacteria None Seen /HPF (None Seen); Bilirubin Negative (Negative); Blood Negative (Negative); Epithelial Cells None Seen /HPF (None Seen); Glucose, Urine Negative (Negative); Hyaline Casts NONE SEEN /LPF (0-2); Ketones Trace (Negative); Leukocyte Esterase Negative (Negative); Nitrite Negative (Negative); Ph 5.5 (4.6-8.0); Protein,Urine Dip Trace (Negative); RBC 0-2 /HPF (0-5); Specific Gravity 1.025 (1.005-1.030); WBC 0-2 /HPF (0-5)
[2024-08-18 23:04] LABS: INFLUENZA A NEGATIVE (NEGATIVE); INFLUENZA B NEGATIVE (NEGATIVE); RESPIRATORY SYNCTIAL VIRUS NEGATIVE (NEGATIVE)
[2024-08-18 23:06] LABS: SARS-CoV-2 Xpert Express POSITIVE (NEGATIVE)
--- NOTE | 2024-08-19 01:40 | XRAY ---
CLINICAL HISTORY: shortness of breath COMPARISON: 08/07/24.. TECHNIQUE: Contiguous axial images were obtained from the neck base through the upper abdomen without contrast. In addition, sagittal and coronal reconstructions were performed to potentially increase the sensitivity for the detection of disease. CT scan was performed according to ALARA (as low as reasonably achievable). FINDINGS: Filling defects in right main and bilateral lobar and segmental branches of the pulmonary arteries. Probable early signs of right heart strain. The lungs show fibrotic bands in the right lower lobe. A subcentimetric pulmonary cyst is noted in the apical segment of right upper lobe. Another 2 cm simple cyst is present in the medial segment of right middle lobe. Mild right pleural effusion. Few calcified nodules are seen in the lateral basal segment of left lower lobe, likely representing healed granulomas. A solid nodule measuring 1 cm with lobulated margins is identified in the medial segment of right middle lobe in juxta diaphragmatic location. Few calcified subcarinal and left hilar lymph nodes are noted, likely representing old granulomatous etiology. The right lobe of thyroid appears bulky with few calcification foci. Limited evaluation of the upper abdomen reveals cholelithiasis with the largest calculus measuring 2.5 cm. Degenerative changes are noted in the thoracic spine. The heart, aorta are of normal size and configuration. No pneumothorax is seen. IMPRESSION: 1. Acute pulmonary thromboembolism with early signs of right heart strain. This is likely acute, however, the previous imaging was a non-contrast study. 2. Mild right pleural effusion has increased in the interim. 3. Focal 1 cm solid nodule with lobulated margins in the right middle lobe - stable. 4. Cholelithiasis with 2.5 cm calculus- Stable. 5. Bulky right thyroid lobe with calcifications - Stable-Ultrasound correlation suggested. Electronically Signed by: Badnar Blevins MD. (08/19/2024 01:35:57 EST)
[2024-08-19] MEDS ORDERED: Heparin 25,000 units/D5W: USE ORDER SET PROTO 25,000 UNITS/250 ML BAG IV SCH ×2 (02:30→03:30)
[2024-08-19] MEDS ORDERED: HEPARIN 5000 UNITS/0.5 ML (HIGH RISK MED) ONE (02:39)
[2024-08-19] MEDS: HEPARIN 5000 UNITS/0.5 ML (HIGH RISK MED) IV STA (02:42)
[2024-08-19 02:47] LABS: INR 1.06 (0.8-3.0); PROTIME 11.5 SECONDS (9.4-12.5)
[2024-08-19] MEDS: Heparin 25,000 units/D5W: USE ORDER SET PROTO 25,000 UNITS/250 ML BAG IV SCH (03:30)
[2024-08-19 10:56] VITALS: BP 144/66; PULSE 74; RESP 18; O2SAT 94
== END 2024-08-19 11:01 | disposition short-term general hospital (02) ==
LOC: ED 21:50
DX: I26.99 Other pulmonary embolism without acute cor pulmonale (principal); R06.02 Shortness of breath; Z79.899 Other long term (current) drug therapy; N18.9 Chronic kidney disease, unspecified; I51.9 Heart disease, unspecified; J84.10 Pulmonary fibrosis, unspecified; J90 Pleural effusion, not elsewhere classified; J98.4 Other disorders of lung; K80.20 Calculus of gallbladder without cholecystitis without obstruction
CPT/HCPCS: 0241U; 36000; 36415; 71260; 80053; 81001; 83880; 84484; 85025; 85379; 85610; 85730; 87040; 93005; 93041; 94640; 94760; 96365; 96374; 96375; 99291; 99292; 99285; J1644; J2919; A9270-GY